=== PATIENT | female | born 1930 | race Caucasian/White ===

== ENCOUNTER 2019-06-07 10:40 | Emergency (ER) | payer MEDICARE, OTHER ==
[~2019-06-07] VITALS: Ht 152.4 cm; Wt 58.1 kg
[~2019-06-07 10:40] MED LIST: ATOR10TA PO; CALC-864 PO; FLUT1DIS3 IH; FURO-145 PO; LEVO75TA7 PO; LOSA50TA39 PO; OMEG500C3 PO
[2019-06-07 10:51] VITALS: BP 138/71
== END 2019-06-07 11:31 | disposition home or self-care (01) ==
LOC: ER 10:40
DX: H66.91 Otitis media, unspecified, right ear (principal); I10 Essential (primary) hypertension; F17.200 Nicotine dependence, unspecified, uncomplicated; Z88.8 Allergy status to other drugs, medicaments and biological substances; Z79.899 Other long term (current) drug therapy